=== PATIENT | male | born 1970 | race Caucasian/White ===

== ENCOUNTER 2016-12-15 03:30 | Emergency (ER) | payer SELFPAY ==
[2016-12-15 03:34] VITALS: BP 129/79; PULSE 89; RESP 18; TEMP 98.1; O2SAT 99
[2016-12-15] MEDS ORDERED: SODIUM CHLOR 0.9% 1000 ML INJ 1,000 ML IV ONE ×3 (03:43→04:00)
[2016-12-15] MEDS ORDERED: SODIUM CHLORIDE 0.9% FLUSH 10 ML FLUSH IVF PRN (03:45)
[2016-12-15 04:00] VITALS: BP 120/57; PULSE 88; RESP 16; O2SAT 97
[2016-12-15 04:06] LABS: AUTOMATED NEUTROPHIL # 5.6 TH/MM3 (1.8-7.7); BASOPHIL # 0.1 TH/MM3 (0-0.2); BASOPHIL % 0.9 % (0.0-2.0); EOSINOPHIL # 0.1 TH/MM3 (0-0.4); EOSINOPHIL % 1.2 % (0.0-4.0); HEMATOCRIT 43.2 % (39.0-51.0); HEMO FLAGS DIFF FINAL; LYMPHOCYTE # 2.9 TH/MM3 (1.0-4.8); MEAN CELL VOLUME 92.7 FL (80.0-100.0); MEAN CORPUSCULAR HEMOGLOBIN 32.4 PG (27.0-34.0); MONO % 11.6 % (0.0-8.0); NEUT % 57.3 % (16.0-70.0); PLATELET COUNT 242 TH/MM3 (150-450); RED BLOOD COUNT 4.66 MIL/MM3 (4.50-5.90); RED CELL DISTRIBUTION WIDTH 14.2 % (11.6-17.2); WHITE BLOOD COUNT 9.8 TH/MM3 (4.0-11.0)
[2016-12-15 04:53] LABS: ALKALINE PHOSPHATASE 48 U/L (45-117); TOTAL BILIRUBIN ADULT 0.3 MG/DL (0.2-1.0)
[2016-12-15 05:04] LABS: ALT (GPT) 16 U/L (12-78); ANION GAP 11 MEQ/L (5-15); AST (GOT) 19 U/L (15-37); BICARBONATE 23.5 MEQ/L (21.0-32.0); BLOOD UREA NITROGEN 9 MG/DL (7-18); CHLORIDE 108 MEQ/L (98-107); GLOMERULAR FILTRATION RATE 70 ML/MIN (>89); SODIUM (NA) 142 MEQ/L (136-145)
[2016-12-15 05:43] VITALS: BP 125/71; PULSE 90; RESP 16; O2SAT 98
--- NOTE | 2016-12-15 05:52 | PD ---
HPI Chief Complaint: Syncope/Near-Syncope Time Seen by Provider: 03:57 Travel History International Travel<30 days: No Contact w/Intl Traveler<30days: No Traveled to known affect area: No History of Present Illness HPI Patient is a 46 year old male presents after an apparent syncopal episode at a local restaurant. Patient states he had been drinking today and uber'd to [facility]. He states that he sat down at the table and fell asleep. The staff thought that he had passed out and although he asked them not to call 911 they still did. Patient transported here by EMS, apparently had bp in 60's systolic but received 6-800 cc of fluid en route. Currently the patient states he feels fine and wants to go home. Clinically sober on arrival, he denies any SOB, CP, abdominal pain, n/v/d, focalized weakness. PFSH Past Medical History Medical History: Denies Significant Hx Past Surgical History Surgical History: No Previous Surgery Social History Alcohol Use: Yes (approx three times a week) Tobacco Use: Yes Substance Use: Yes (cocaine) Allergies-Medications (Allergen,Severity, Reaction): Coded Allergies: No Known Allergies (Unverified , 12/15/16) Reported Meds & Prescriptions Reported Meds & Active Scripts Active No Active Prescriptions or Reported Medications Review of Systems Except as stated in HPI: all other systems reviewed are Neg Physical Exam Narrative GENERAL: WD/WN in nad. SKIN: Warm and dry. HEAD: Atraumatic. Normocephalic. EYES: Pupils equal and round. No scleral icterus. No injection or drainage. ENT: No nasal bleeding or discharge. Mucous membranes pink and moist. NECK: Trachea midline. No JVD. CARDIOVASCULAR: Regular rate and rhythm. RESPIRATORY: No accessory muscle use. Clear to auscultation. Breath sounds equal bilaterally. GASTROINTESTINAL: Abdomen soft, non-tender, nondistended. Hepatic and splenic margins not palpable. MUSCULOSKELETAL: Extremities without clubbing, cyanosis, or edema. No obvious deformities. NEUROLOGICAL: Awake and alert. No obvious cranial nerve deficits. Motor grossly within normal limits. Five out of 5 muscle strength in the arms and legs. Normal speech. Cerebellar testing normal, ambulates even with balanced gait. PSYCHIATRIC: Appropriate mood and affect; insight and judgment normal. Data Data Last Documented VS Orders Electrocardiogram (12/15/16 03:43) Complete Blood Count With Diff (12/15/16 03:43) Comprehensive Metabolic Panel (12/15/16 03:43) Troponin I (12/15/16 03:43) Ecg Monitoring (12/15/16 03:43) Iv Access Insert/Monitor (12/15/16 03:43) Oximetry (12/15/16 03:43) Sodium Chloride 0.9% Flush (Ns Flush) (12/15/16 03:45) Sodium Chlor 0.9% 1000 Ml Inj (Ns 1000 M (12/15/16 03:43) Sodium Chlor 0.9% 1000 Ml Inj (Ns 1000 M (12/15/16 04:00) Sodium Chlor 0.9% 1000 Ml Inj (Ns 1000 M (12/15/16 04:00) Labs Laboratory Tests Test 12/15/16 03:40 White Blood Count 9.8 TH/MM3 Red Blood Count 4.66 MIL/MM3 Hemoglobin 15.1 GM/DL Hematocrit 43.2 % Mean Corpuscular Volume 92.7 FL Mean Corpuscular Hemoglobin 32.4 PG Mean Corpuscular Hemoglobin 35.0 % Concent Red Cell Distribution Width 14.2 % Platelet Count 242 TH/MM3 Mean Platelet Volume 8.2 FL Neutrophils (%) (Auto) 57.3 % Lymphocytes (%) (Auto) 29.0 % Monocytes (%) (Auto) 11.6 % Eosinophils (%) (Auto) 1.2 % Basophils (%) (Auto) 0.9 % Neutrophils # (Auto) 5.6 TH/MM3 Lymphocytes # (Auto) 2.9 TH/MM3 Monocytes # (Auto) 1.1 TH/MM3 Eosinophils # (Auto) 0.1 TH/MM3 Basophils # (Auto) 0.1 TH/MM3 CBC Comment DIFF FINAL Differential Comment Sodium Level 142 MEQ/L Potassium Level 4.0 MEQ/L Chloride Level 108 MEQ/L Carbon Dioxide Level 23.5 MEQ/L Anion Gap 11 MEQ/L Blood Urea Nitrogen 9 MG/DL Creatinine 1.13 MG/DL Estimat Glomerular Filtration 70 ML/MIN Rate Random Glucose 113 MG/DL Calcium Level 7.8 MG/DL Total Bilirubin 0.3 MG/DL Aspartate Amino Transf 19 U/L (AST/SGOT) Alanine Aminotransferase 16 U/L (ALT/SGPT) Alkaline Phosphatase 48 U/L Troponin I LESS THAN 0.02 NG/ML Total Protein 6.6 GM/DL Albumin 3.0 GM/DL MDM Medical Decision Making Medical Screen Exam Complete: Yes Emergency Medical Condition: Yes Interpretation(s) EKG shows nsr with normal axis and normal intervals. No concerning sTT changes. Normal ekg. Differential Diagnosis Syncope, dehydration, acs unlikely, ami unlikely, dehydration, electrolyte abnormalities. Narrative Course Patient roomed in the ER. Admits to having some alcohol tonight but is clinically sober on arrival. Given fluids. Initial workup, EKG, Troponin, H/H wnl. Patient would like to go home. States he will take an Uber. He is clinically stable for discharge at this time and has no indication for involuntary status. Diagnosis Primary Impression: Syncope Qualified Code: R55 - Syncope, unspecified syncope type Scripts No Active Prescriptions or Reported Meds Disposition: 01 DISCHARGE HOME Condition: Stable Daniel Elena MD Dec 15, 2016 05:52
--- NOTE | 2016-12-15 10:22 | EKG ---
Date Performed: 12/15/2016 Time Performed: 04:21:21 PTAGE: 46 years EKG: Sinus rhythm NORMAL ECG NO PREVIOUS TRACING DOCTOR: Ilia Conde Interpretating Date/Time 12/15/2016 10:22:20
== END 2016-12-15 07:45 | disposition home or self-care (01) ==
LOC: NEPC 03:30
DX: R55 Syncope and collapse (principal)
CPT/HCPCS: 80053; 84484; 85025; 93005; 96360; 96361; 99284; J7030

== ENCOUNTER 2016-12-26 23:03 | Emergency (ER) | payer SELFPAY ==
[~2016-12-26] VITALS: Ht 180.3 cm; Wt 215.0 kg
[2016-12-26 23:05] VITALS: BP 129/71; PULSE 94; RESP 16; O2SAT 100
[2016-12-26] MEDS ORDERED: SODIUM CHLOR 0.9% 1000 ML INJ 1,000 ML IV ONE (23:09)
[2016-12-26] MEDS ORDERED: SODIUM CHLORIDE 0.9% FLUSH 10 ML FLUSH IVF PRN (23:15)
--- NOTE | 2016-12-26 23:30 | PD ---
HPI Chief Complaint: Syncope/Near-Syncope Time Seen by Provider: 23:09 Travel History International Travel<30 days: No Contact w/Intl Traveler<30days: No History of Present Illness HPI Patient's 46-year-old male presents to emergency department for the second time in 7 days for evaluation of syncope. He was seen by me several days ago had syncope and he wanted to follow-up as an outpatient. He was discharged after EKG and basic labs were negative. Patient was at a local [facility] [employer] [facility] [employer] [facility] [employer] where he was drinking and he apparently lost consciousness while at the bar. He is denying any headache neck pain back pain chest pain shortness of breath leading up to or following the event. He does appear intoxicated at this point is slurring his words slightly. [facility] Social History Alcohol Use: Yes (approx three times a week) Tobacco Use: Yes Substance Use: Yes (cocaine) Allergies-Medications (Allergen,Severity, Reaction): Coded Allergies: No Known Allergies (Unverified , 12/26/16) Reported Meds & Prescriptions Reported Meds & Active Scripts Active No Active Prescriptions or Reported Medications Review of Systems Except as stated in HPI: all other systems reviewed are Neg Physical Exam Narrative GENERAL: Well-developed well-nourished, slurring his words. SKIN: Focused skin assessment warm/dry. No visible evidence of trauma. HEAD: Atraumatic. Normocephalic. No raccoons eyes no morel signs. EYES: Pupils equal and round. No scleral icterus. No injection or drainage. ENT: No nasal bleeding or discharge. Mucous membranes pink and moist. NECK: Trachea midline. No JVD. CARDIOVASCULAR: Regular rate and rhythm. No murmur appreciated. 2+ bilateral equal pulses in all 4 extremity's, no pedal edema. RESPIRATORY: No accessory muscle use. Clear to auscultation. Breath sounds equal bilaterally. GASTROINTESTINAL: Abdomen soft, non-tender, nondistended. Hepatic and splenic margins not palpable. MUSCULOSKELETAL: No obvious deformities. No clubbing. No cyanosis. No edema. NEUROLOGICAL: Awake and alert. No obvious cranial nerve deficits. Motor grossly within normal limits. Normal speech. PSYCHIATRIC: Appropriate mood and affect; insight and judgment normal. Data Data Last Documented VS Vital Signs Date Time Temp Pulse Resp B/P Pulse Ox O2 Delivery O2 Flow Rate FiO2 12/26/16 23:05 94 16 129/71 100 Room Air Orders Electrocardiogram (12/26/16 23:09) Complete Blood Count With Diff (12/26/16 23:09) Comprehensive Metabolic Panel (12/26/16 23:09) B-Type Natriuretic Peptide (12/26/16 23:09) Ckmb (Isoenzyme) Profile (12/26/16 23:09) Troponin I (12/26/16 23:09) Act Partial Throm Time (Ptt) (12/26/16 23:09) Prothrombin Time / Inr (Pt) (12/26/16 23:) Urinalysis - C+S If Indicated (12/26/16 23:09) Chest, Single Ap (12/26/16 23:) Ecg Monitoring (12/26/16 23:) Iv Access Insert/Monitor (12/26/16 23:) Oximetry (12/26/16 23:) Sodium Chloride 0.9% Flush (Ns Flush) (12/26/16 23:15) Sodium Chlor 0.9% 1000 Ml Inj (Ns 1000 M (12/26/16 23:09) Alcohol (Ethanol) (12/26/16 23:09) Ct Brain W/O Iv Contrast(Rout) (12/26/16 ) Ct Cerv Spine W/O Contrast (12/26/16 ) MDM Medical Decision Making Medical Screen Exam Complete: Yes Emergency Medical Condition: Yes Interpretation(s) EKG shows normal sinus rhythm normal axis normal R-wave progression. No concerning ST T changes. QRS duration upper limit of normal at 110. Intervals otherwise within normal limits. This is a borderline EKG. Comparison to 2016 shows no change. Differential Diagnosis Syncope, intoxication, cardiogenic syncope, head injury and likely, neck injury unlikely, Narrative Course Patient was roomed in the emergency department, has orders for normal saline as well as labs including a CBC CMP EKG and troponin and alcohol level.. Patient discussed with Dr. Campuzano at midnight to follow-up these test results and disposition properly. Scripts No Active Prescriptions or Reported Meds Daniel Elena MD Dec 26, 2016 23:30
--- NOTE | 2016-12-26 23:39 | RADHPO ---
EXAM DATE/TIME: 12/26/2016 23:34 [facility] COMPARISON: No previous studies available for comparison. INDICATIONS : Chest discomfort. Palpatations. MEDICAL HISTORY : None. SURGICAL HISTORY : None. ENCOUNTER: Initial ACUITY: 1 day PAIN SCORE: 6/10 LOCATION: Bilateral chest FINDINGS: A single view of the chest demonstrates the lungs to be symmetrically aerated without evidence of mas s, infiltrate or effusion. The cardiomediastinal contours are unremarkable. Osseous structures are intact. CONCLUSION: Normal examination. Rm Boucher MD on December 26, 2016 at 23:38 Board Certified Radiologist. This report was verified electronically.
[2016-12-27 00:07] LABS: AUTOMATED NEUTROPHIL # 10.3 TH/MM3 (1.8-7.7); BASOPHIL # 0.1 TH/MM3 (0-0.2); BASOPHIL % 0.9 % (0.0-2.0); EOSINOPHIL # 0.3 TH/MM3 (0-0.4); EOSINOPHIL % 1.8 % (0.0-4.0); HEMATOCRIT 45.6 % (39.0-51.0); LYMPH % 20.8 % (9.0-44.0); MEAN CELL VOLUME 93.9 FL (80.0-100.0); MEAN CORPUSCULAR HEMOGLOBIN 31.5 PG (27.0-34.0); MEAN CORPUSCULAR HGB CONC 33.6 % (32.0-36.0); NEUT % 71.5 % (16.0-70.0); PLATELET COUNT 358 TH/MM3 (150-450); RED BLOOD COUNT 4.86 MIL/MM3 (4.50-5.90); RED CELL DISTRIBUTION WIDTH 14.2 % (11.6-17.2); WHITE BLOOD COUNT 14.4 TH/MM3 (4.0-11.0)
[2016-12-27 00:09] LABS: HEMO FLAGS DIFF FINAL
[2016-12-27 00:21] LABS: CHLORIDE 103 MEQ/L (98-107); POTASSIUM 3.1 MEQ/L (3.5-5.1); SODIUM (NA) 140 MEQ/L (136-145)
[2016-12-27 00:26] LABS: ANION GAP 14 MEQ/L (5-15); BICARBONATE 22.7 MEQ/L (21.0-32.0)
[2016-12-27 00:27] LABS: BLOOD UREA NITROGEN 11 MG/DL (7-18)
[2016-12-27 00:29] LABS: ALT (GPT) 17 U/L (12-78); AST (GOT) 14 U/L (15-37)
[2016-12-27 00:30] LABS: GLOMERULAR FILTRATION RATE 80 ML/MIN (>89)
[2016-12-27 00:31] LABS: TOTAL BILIRUBIN ADULT 0.4 MG/DL (0.2-1.0)
[2016-12-27 00:32] LABS: ALKALINE PHOSPHATASE 60 U/L (45-117); APTT (PATIENT) 24.3 SEC (24.3-30.1); CREATINE KINASE 110 U/L (39-308)
[2016-12-27 00:45] VITALS: BP 130/76; PULSE 92; RESP 18; O2SAT 94
--- NOTE | 2016-12-27 00:53 | RADHPO ---
EXAM DATE/TIME: 12/27/2016 00:15 [facility] COMPARISON: No previous studies available for comparison. INDICATIONS : Syncope. RADIATION DOSE: 65.63 CTDIvol (mGy) MEDICAL HISTORY : None SURGICAL HISTORY : None. ENCOUNTER: Initial ACUITY: 1 day PAIN SCALE: 0/10 LOCATION: cranial TECHNIQUE: Multiple contiguous axial images were obtained of the head. Using automated exposure control and adj ustment of the mA and/or kV according to patient size, radiation dose was kept as low as reasonably a chievable to obtain optimal diagnostic quality images. FINDINGS: CEREBRUM: The ventricles are normal for age. No evidence of midline shift, mass lesion, hemorrhage or acute in farction. No extra-axial fluid collections are seen. POSTERIOR FOSSA: The cerebellum and brainstem are intact. The 4th ventricle is midline. The cerebellopontine angle i s unremarkable. EXTRACRANIAL: The visualized portion of the orbits is intact. SKULL: The calvaria is intact. No evidence of skull fracture. CONCLUSION: Normal examination. Rm Boucher MD on December 27, 2016 at 0:52 Board Certified Radiologist. This report was verified electronically.
--- NOTE | 2016-12-27 00:54 | RADHPO ---
EXAM DATE/TIME: 12/27/2016 00:15 [facility] COMPARISON: No previous studies available for comparison. INDICATIONS : Syncope. Fall. RADIATION DOSE: 26.67 CTDIvol (mGy) MEDICAL HISTORY : None SURGICAL HISTORY : None. ENCOUNTER: Initial ACUITY: 1 day PAIN SCALE: 0/10 LOCATION: neck TECHNIQUE: Volumetric scanning of the cervical spine was performed. Multiplanar reconstructions in the sagittal, coronal and oblique axial planes were performed. Using automated exposure control and adjustment o f the mA and/or kV according to patient size, radiation dose was kept as low as reasonably achievable to obtain optimal diagnostic quality images. FINDINGS: VERTEBRAE: Normal vertebral body height. ALIGNMENT: No evidence of subluxation. C2-C3: The bony spinal canal is normal in size. No evidence of disc bulge or herniation. The neural forami na are bilaterally patent. C3-C4: The bony spinal canal is normal in size. No evidence of disc bulge or herniation. The neural forami na are bilaterally patent. C4-C5: The bony spinal canal is normal in size. No evidence of disc bulge or herniation. The neural forami na are bilaterally patent. C5-C6: The bony spinal canal is normal in size. No evidence of disc bulge or herniation. The neural forami na are bilaterally patent. C6-C7: The bony spinal canal is normal in size. No evidence of disc bulge or herniation. The neural forami na are bilaterally patent. C7-T1: The bony spinal canal is normal in size. No evidence of disc bulge or herniation. The neural forami na are bilaterally patent. CONCLUSION: Normal examination. Rm Boucher MD on December 27, 2016 at 0:53 Board Certified Radiologist. This report was verified electronically.
[2016-12-27 00:56] LABS: CKMB 0.6 NG/ML (0.5-3.6)
[2016-12-27 01:41] LABS: BLOOD, URINE NEG (NEG); GLUCOSE,URINE NEG (NEG); KETONE, URINE TRACE mg/dL (NEG); NITRITE,URINE NEG (NEG); PH, URINE 5.5 (5.0-8.5)
[2016-12-27 01:59] LABS: URINE COLOR YELLOW (YELLW/STRAW)
[2016-12-27 02:00] LABS: HYALINE CAST, URINE 15-19 /lpf (RARE); MUCUS URINE MOD /lpf (OCC); SQUAMOUS EPITHELIAL CELL URINE 0-5 /hpf (0-5)
[2016-12-27 02:01] LABS: COMMENT (UR) CULT NOT INDICATED; CULTURE IF INDICATED CULT NOT INDICATED; WBC, URINE 0-2 /hpf (0-5)
[2016-12-27 02:10] VITALS: BP 108/62; PULSE 80; RESP 17; O2SAT 95
[2016-12-27 03:10] VITALS: BP 110/66; PULSE 78; RESP 16; O2SAT 97
[2016-12-27 04:14] VITALS: BP_SYST 111; BP_SYST 112; BP_SYST 120; BP_DIAS 69; BP_DIAS 73; BP_DIAS 74; RESP 18; TEMP 98
--- NOTE | 2016-12-27 04:15 | PD ---
Physical Exam Time Seen by Provider: 04:[address] Elena left this patient with me to check the labs, EKG and CT scanner make a disposition. Data Data Last Documented VS Vital Signs Date Time Temp Pulse Resp B/P Pulse Ox O2 Delivery O2 Flow Rate FiO2 12/27/16 00:45 92 18 130/76 94 Room Air Orders Electrocardiogram (12/26/16 23:09) Complete Blood Count With Diff (12/26/16 23:09) Comprehensive Metabolic Panel (12/26/16 23:) B-Type Natriuretic Peptide (12/26/16 23:09) Ckmb (Isoenzyme) Profile (12/26/16 23:09) Troponin I (12/26/16 23:09) Act Partial Throm Time (Ptt) (12/26/16 23:09) Prothrombin Time / Inr (Pt) (12/26/16 23:09) Urinalysis - C+S If Indicated (12/26/16 23:09) Chest, Single Ap (12/26/16 23:09) Ecg Monitoring (12/26/16 23:09) Iv Access Insert/Monitor (12/26/16 23:09) Oximetry (12/26/16 23:09) Sodium Chloride 0.9% Flush (Ns Flush) (12/26/16 23:15) Sodium Chlor 0.9% 1000 Ml Inj (Ns 1000 M (12/26/16 23:09) Alcohol (Ethanol) (12/26/16 23:09) Ct Brain W/O Iv Contrast(Rout) (12/27/16 ) Ct Cerv Spine W/O Contrast (12/27/16 ) CKMB (12/26/16 23:25) CKMB% (12/26/16 23:25) Labs Laboratory Tests Test 12/26/16 12/27/16 23:25 01:05 White Blood Count 14.4 TH/MM3 Red Blood Count 4.86 MIL/MM3 Hemoglobin 15.3 GM/DL Hematocrit 45.6 % Mean Corpuscular Volume 93.9 FL Mean Corpuscular Hemoglobin 31.5 PG Mean Corpuscular Hemoglobin 33.6 % Concent Red Cell Distribution Width 14.2 % Platelet Count 358 TH/MM3 Mean Platelet Volume 8.2 FL Neutrophils (%) (Auto) 71.5 % Lymphocytes (%) (Auto) 20.8 % Monocytes (%) (Auto) 5.0 % Eosinophils (%) (Auto) 1.8 % Basophils (%) (Auto) 0.9 % Neutrophils # (Auto) 10.3 TH/MM3 Lymphocytes # (Auto) 3.0 TH/MM3 Monocytes # (Auto) 0.7 TH/MM3 Eosinophils # (Auto) 0.3 TH/MM3 Basophils # (Auto) 0.1 TH/MM3 CBC Comment DIFF FINAL Differential Comment Prothrombin Time 11.0 SEC Prothromb Time International 1.0 RATIO Ratio Activated Partial 24.3 SEC Thromboplast Time Sodium Level 140 MEQ/L Potassium Level 3.1 MEQ/L Chloride Level 103 MEQ/L Carbon Dioxide Level 22.7 MEQ/L Anion Gap 14 MEQ/L Blood Urea Nitrogen 11 MG/DL Creatinine 1.00 MG/DL Estimat Glomerular Filtration 80 ML/MIN Rate Random Glucose 120 MG/DL Calcium Level 8.1 MG/DL Total Bilirubin 0.4 MG/DL Aspartate Amino Transf 14 U/L (AST/SGOT) Alanine Aminotransferase 17 U/L (ALT/SGPT) Alkaline Phosphatase 60 U/L Total Creatine Kinase 110 U/L Creatine Kinase MB 0.6 NG/ML Troponin I LESS THAN 0.02 NG/ML B-Type Natriuretic Peptide 8 PG/ML Total Protein 7.1 GM/DL Albumin 3.4 GM/DL Ethyl Alcohol Level 172 MG/DL Urine Color YELLOW Urine Turbidity CLEAR Urine pH 5.5 Urine Specific [place] 1.015 Urine Protein TRACE mg/dL Urine Glucose (UA) NEG mg/dL Urine Ketones TRACE mg/dL Urine Occult Blood NEG Urine Nitrite NEG Urine Bilirubin NEG Urine Leukocyte Esterase NEG Urine WBC 0-2 /hpf Urine Squamous Epithelial 0-5 /hpf Cells Urine Hyaline Casts 15-19 /lpf Urine Mucus MOD /lpf Microscopic Urinalysis Comment CULT NOT INDICATED MDM Medical Record Reviewed: Yes Supervised Visit with KEEGAN: Yes Interpretation(s) The EKG shows sinus rhythm with a rate of 89, a single PVC and otherwise no acute change. The CBC shows a white count of 14,400 with 72% neutrophils but is otherwise unremarkable. The coagulation profile is normal. The complete metabolic profile shows a potassium of 3.1, GFR of 80, glucose 120 but is otherwise unremarkable. The BNP is normal and the troponin I is normal. The alcohol level is 172. The urine shows 15-19 Hylan casts, trace ketones but is otherwise normal and culture is not indicated. Differential Diagnosis Alcohol intoxication, acute coronary syndrome, possible syncopal spells, urinary tract infection, cardiac syncope Narrative Course The patient appears to have had alcohol intoxication. There is no evidence for cardiac syncope. It is now 0413 and the patient is alert and oriented and wants to go home. Orthostatics are normal. Diagnosis Primary Impression: Alcohol intoxication Additional Impression: Syncope Additional Instruction: Discontinue alcohol. It appears that the alcohol lowers her blood pressure and makes you pass out. In addition he may be getting dehydrated from the alcohol use. Follow-up with her primary care physician next week. Med/Other Pt SpecificInfo: No Change to Meds Scripts No Active Prescriptions or Reported Meds Disposition: 01 DISCHARGE HOME Condition: Stable Ned Campuzano MD Dec 27, 2016 04:15
[2016-12-27 04:33] VITALS: BP 110/66; PULSE 78; RESP 16; O2SAT 96
--- NOTE | 2016-12-28 00:05 | EKG ---
Date Performed: 12/26/2016 Time Performed: 23:47:16 PTAGE: 46 years EKG: Sinus rhythm with PVC(s) Possible left posterior fascicular block Borderline ECG PREVIOUS TRACING : 12/15/2016 04.21 Compared to prior tracing no significant change DOCTOR: Raphael Govea Interpretating Date/Time 12/28/2016 00:05:23
== END 2016-12-27 04:50 | disposition home or self-care (01) ==
LOC: PHED 23:03
DX: R55 Syncope and collapse (principal); F10.129 Alcohol abuse with intoxication, unspecified; F14.10 Cocaine abuse, uncomplicated; Y90.6 Blood alcohol level of 120-199 mg/100 ml
CPT/HCPCS: 70450; 71010; 72125; 80053; 80307; 81001; 82550; 82552; 83880; 84484; 85025; 85610; 85730; 93005; 96360; 99284; J7030